=== PATIENT | female | born 1990 ===

== ENCOUNTER 2024-06-28 10:44 | Outpatient (CLI) | payer OTHER ==
--- NOTE | 2024-06-29 07:44 | Ultrasound Report ---
LIMITED ULTRASOUND OF LEFT BREAST: 06/28/2024 CLINICAL: Currently patient with focal palp and pain. No prior exams were available for comparison. Color flow ultrasound of the left breast 2 o'clock, 11 o'clock, and retroareolar regions was perform ed. Cerda scale images of the real-time examination were reviewed. No significant sonographic abnormalities in the left breast. IMPRESSION: NEGATIVE There is no sonographic evidence of malignancy. There is no abnormality seen in the left breast to correspond with the areas of clinical concern (2:0 0, 11:00, retroareolar - areas of irritation/inflammation and pain). Specifically, no discrete absces s or mass. Clinical followup recommended. If new or worsening symptoms occur, re-imaging is suggested. This exam was interpreted at Station ID: [id number]. Electronically Signed By: Chris Nicholas M.D. lc/:06/28/2024 12:09:44 letter sent: No_Letter Ultrasound BI-RADS: 1 Negative BI-RADS CATEGORY: (1) - 1 RECOMMENDATION: (ANNUAL) - Recommend routine annual screening mammography. [id number] return to screening LATERALITY: (B)
== END 2024-06-28 10:45 | disposition home or self-care (01) ==
LOC: DI 10:44
PROVIDERS: ATTEND Nurse Practitioner Family
DX: N64.4 Mastodynia (principal); N63.21 Unspecified lump in the left breast, upper outer quadrant